=== PATIENT | female | born 1955 | race Caucasian/White ===

== ENCOUNTER 2016-10-16 13:12 | Outpatient (CLI) ==
[2016-07-22 15:46] VITALS: BMI 23.7
--- NOTE | 2016-10-16 16:01 | MRI ---
EXAM: MRI lumbar spine without IV contrast. DATE: 16 October 2016. HISTORY: Low back pain. Right lower extremity radiculopathy. TECHNIQUE: Sagittal and axial T1W and T2W sequences of the lumbar spine along with sagittal IR and coronal T2W sequences were obtained using 1.2 Valarie magnet. No IV contrast. COMPARISON: MRI lumbar spine 14 April 2014. FINDINGS: There are five classic [id number] lumbar vertebra. At the thoracolumbar junction, t here is a transitional vertebra with hypoplastic right rib and lumbar type left transverse sinus. I n keeping with previous nomenclature, this transitional vertebra is referred to as T12. A 14 degree leftward curvature of the lower thoracic and lumbar spine is again seen, with the apex o f curvature at L2-3. No acute lumbar fracture, subluxation, focal osseous malignancy, or pars inter articularis defect is identified. Tiny anterior osteophytes are demonstrated at several lumbar leve ls. Lumbar vertebra are normal in height. T2W/T1W bone marrow signal is more heterogeneous band in April 2014, likely due to fatty infiltration. Disc desiccation is observed throughout the lumbar s pine, except at L3-4. Mild disc space narrowing is detected at L4-5. No sacral fracture or stress reaction is apparent. There is no acute sacroiliitis. Conus medullaris terminates at T12-L1. Visi ble spinal cord is normal. No retroperitoneal lymphadenopathy, paraspinal mass, or aortic aneurysm is detected. Psoas muscles are symmetric bilaterally. There is mild left sacrospinalis muscle atrophy inferiorly. Visible por tions of the liver, spleen, gallbladder, pancreas, adrenal glands and kidneys reveal no definitive l esions / abnormality. Segmental analysis: T11-12: Normal. T12-L1: Normal. L1-2: Minimal posterior disc bulge does not cause central canal or foraminal stenosis. L2-3: Minimal concentric disc bulge causes minimal bilateral inferior foraminal encroachment. No ce ntral canal stenosis. L3-4: Small concentric disc bulge, mild facet arthropathy and slight ligamentum flavum hypertrophy cause mild central canal stenosis, moderate right foraminal stenosis, and minimal/mild left foramina l narrowing. Small right facet effusion is present. L4-5: Small concentric disc bulge, mild left facet arthropathy and mild ligamentum flavum hypertrop hy cause mild central canal stenosis, minor right foraminal narrowing and mild / moderate left manuel inal stenosis. L5-S1: Posterior midline disc protrusion (4.2 mm AP x 20 mm transverse) touches each S1 nerve root and causes mild central canal stenosis. Minor facet arthropathy and disc bulge extending into the l eft foramen cause minor left foraminal stenosis . IMPRESSIONS: 1. Thoracolumbar mild levoscoliosis, mild lumbar facet arthropathy and mild DDD - - similar to 2013. 2. Mild central canal stenoses at L3-4, L4-5, L5-S1. 3. Multilevel foraminal narrowing as described. 4. Marrow heterogeneity suggests fatty infiltration/ osteopenia.
== END 2016-10-16 13:13 | disposition home or self-care (01) ==
LOC: RAD 13:12
PROVIDERS: ATTEND Physician Assistant Medical
DX: M54.5 Low back pain (principal)

== ENCOUNTER → 2016-11-11 | Outpatient (RCR) ==
[2016-07-22 15:46] VITALS: BMI 23.7
--- NOTE | 2016-10-28 08:11 | RS.OPPTEV2 ---
Date of Note: 10/23/16 Visit #: 1 Date of Evaluation: 10/23/16 Payer Source: Medicaid Date of Onset/Injury/Change in Status: 08/14/16 Surgery Performed?: No Treatment Diagnosis: Lower back pain History of Condition/Mechanism of Injury:: Patient reports a history of back pain for years, but reports more recent onset of worsening symptoms and right buttock pain over the past 3 months. No particular incident exacerbated her condition. Mirta states she has been on [place] 10 mg and Xanax for many years and began to wean herself off of them and now she is completely off of these meds. Prior Level of Function.....Patient was independent with: ADL's, Self Care, Caregiving, Ambulation/Mobility, Community Integration/Access Functional Limitations: Sleep, ADL's, Reaching, Pushing, Pulling, Lifting, Carrying, Sitting, Standing, Bending, Squatting, Ambulation, Community Access/ Integration Current Subjective/complaints:: Patient states that her pain is so unrelenting that she is going to kill herself if she does not get help. She stated that she already had a plan in place. Treatment Side (optional): N/A Medical History Medical History: Arthritis (back and hands) Medical History Comments:: right fractured rib 6 years ago and levoscoliosis Surgical History: Tonsillectomy, Hysterectomy, Other Surgical History Comments:: carpal tunnel release of LUE, saliva gland removal on left (perotid gland), right wrist ORIF Smoking Status: Current every day smoker Hx Home Medications: Soma and Celexa, Effexor XR, & Gabapentin 300 mg bid & phenetermine Pain Assessment - Pain Description Pain Location: lower back and right buttock Current Pain Intensity: 8/10 Worst Pain Intensity: 10+/10 Functional Outcome Measure Oswestry LBP: 41 - G Codes & Severity Modifier G Codes & Modifier: NA Source of G Code score: NA General Range of Motion: BLEs are WNL Muscle Strength: BLEs WNLs - ROM Lumbar Flexion: Fingertips to floor Sidebending to Left: Reach to Lateral Joint Line Sidebending to Right: Reach to Lateral Joint Line Lumbar Spine ROM Limitations: Soft Tissue Tightness, Pain Comments: Full lumbar flexion with pt having significant pain coming up to neutral and she has to use her hands to walk her back up into extension. Palpation Palpation Findings: Tenderness (across the lumbar area and right buttock and sciatic notch area.) Sensation - Sensation Sensation Description: Within Normal Limits Interventions - Exercise/Activities/Manual Therapy Exercises/Activities: NA Manual Therapy: NA - Charges Total Direct Minutes: 45 Total Treatment Time: 45 Procedures billed for this date of service:: PT Eval Assessment Assessment: Patient has chronic but worsening LBP which she states is intolerable. It is limiting her daily activites. Patient Education: Education of diagnosis, Body/Joint mechanics, Activity Modification, Education of Plan of Care Rehab Potential: Good Short Term Goals Goal #1: Intermittent back pain Goal to be met by: 11/14/16 Goal #2: Average pain 5/10 Goal to be met by: 11/14/16 Goal #3: Independent in basic HEP Goal to be met by: 11/14/16 Goal #4: Patient reports 25% improvement in back pain. Goal to be met by: 11/14/16 Douper Goals Goal #1: Only occasional pain Goal to be met by: 12/05/16 Goal #2: Patient is independent with proper body mechanics Goal to be met by: 12/05/16 Goal #3: Patient is independent with HEP to maintain DC status. Goal to be met by: 12/05/16 Goal #4: Oswestry LBP score 30/50 Goal to be met by: 12/05/16 Plan - Treatment to be Provided Procedures: Therapeutic Exercises, Therapeutic Activity, Manual Therapy, Massage , Patient Education Modalities: Electrical Stimulation, Ultrasound/Phonophoresis, Class IV Laser, Cryotherapy, Hot Packs, Mechanical Traction - Treatment Plan Frequency: 2 X week Duration: 6 weeks ORDER # VISITS AND/OR THROUGH DATE: 12/05/2016 - Treatment Code (1) Low back pain Qualifiers: Chronicity: chronic Back pain laterality: right Sciatica presence: with sciatica Sciatica laterality: sciatica of right side Qualified Description: Chronic right-sided low back pain with right-sided sciatica Qualifier Code(s): (M54.41) Lumbago with sciatica, right side
--- NOTE | 2016-10-28 14:12 | RS.OPPTDN ---
Subjective Date of Note: 10/28/16 Visit #: 2 Date of Evaluation: 10/23/16 Payer Source: Medicaid Treatment Diagnosis: Lower back pain Current Subjective/complaints:: Patient states her back is bothering her severely. Says that she can't get into certain positions (but unable to say which position) because of pain. She also c/o severe neck pain in which she says it is "killing her." *Precautions: Stitches Pain Assessment - Pain Description Pain Location: lower back and right buttock, moving to the L side Pain Description: Radiating, Sharp, Throbbing Current Pain Intensity: "severe" - Treatment Modality: Ultrasound Parameters/Method Applied: continuous @ 1.5 w/cm2 x 12 mins R lumbar paraspinals and SI/and some into the L Patient Position: Left Sidelying - Heat/Cryotherapy Treatment: Hot Pack Interventions - Exercise/Activities/Manual Therapy Exercises/Activities: Passive hamstring and piriformis stretching, pillow squeezes and isometric hip abd Total minutes of Exercise: 15 Manual Therapy: NA HOME EXERCISE PROGRAM: HS stretch and Prayer stretch. Cat/camel stretches in quadraped. Isometric hip flexion. Red theraband for scapular retraction. - Charges Total Direct Minutes: 27 Total Treatment Time: 42 Procedures billed for this date of service:: hp, u/s, ex Assessment: Patient appeared to have improved presentation of pain today despite describing it as severe. She demo good flexibility with stretching today, but does show the need to continue with strengthening and trunk stability. Patient Education: Education of diagnosis, Body/Joint mechanics, Home Exercise Program, Home Safety, Activity Modification, Education of Plan of Care Patient demonstrates compliance with HEP?: Yes Short Term Goals Goal #1: Intermittent back pain Goal to be met by: 11/14/16 Goal #2: Average pain 5/10 Goal to be met by: 11/14/16 Goal #3: Independent in basic HEP Goal to be met by: 11/14/16 Goal #4: Patient reports 25% improvement in back pain. Goal to be met by: 11/14/16 Director [employer] Goals Goal #1: Only occasional pain Goal to be met by: 12/05/16 Goal #2: Patient is independent with proper body mechanics Goal to be met by: 12/05/16 Goal #3: Patient is independent with HEP to maintain DC status. Goal to be met by: 12/05/16 Goal #4: Oswestry LBP score 30/50 Goal to be met by: 12/05/16 Plan PLAN OF CARE EXPIRES ON:: 12/05/16 ORDER # VISITS AND/OR THROUGH DATE: 12/05/2016 PLAN: Continue Plan of Care
--- NOTE | 2016-10-30 16:39 | RS.OPPTDN ---
Subjective Date of Note: 10/30/16 Visit #: 3 Date of Evaluation: 10/23/16 Payer Source: Medicaid Treatment Diagnosis: Lower back pain Current Subjective/complaints:: Patient says her last treatment helped tremendously. She was very excited to have u/s again today. She says she was able to sleep better too. *Precautions: Stitches Pain Assessment - Pain Description Pain Location: lower back and right buttock, moving to the L side Pain Description: Radiating, Sharp, Throbbing Current Pain Intensity: "severe" - Treatment Modality: Ultrasound Parameters/Method Applied: continuous @ 1.5 w/cm2 x 12 mins to the R lumbar paraspinals and SI Patient Position: Left Sidelying - Heat/Cryotherapy Treatment: Hot Pack (over the R low back and R SI sidelying) Interventions - Exercise/Activities/Manual Therapy Exercises/Activities: Passive hamstring and piriformis stretching, pillow squeezes and isometric hip abd and flexion. Pelvic tilts all x 10. Total minutes of Exercise: 16 Manual Therapy: NA HOME EXERCISE PROGRAM: HS stretch and Prayer stretch. Cat/camel stretches in quadraped. Isometric hip flexion. Red theraband for scapular retraction. - Charges Total Direct Minutes: 28 Total Treatment Time: 43 Procedures billed for this date of service:: hp, u/s, ex Assessment: Patient experienced relief after her first session as well as today. She appears to david all trunk stability well. She has also seen improvement with sleep. Patient Education: Education of diagnosis, Body/Joint mechanics, Home Exercise Program, Home Safety ([place]), Activity Modification, Education of Plan of Care Short Term Goals Goal #1: Intermittent back pain Goal to be met by: 11/14/16 Goal #2: Average pain 5/10 Goal to be met by: 11/14/16 Goal #3: Independent in basic HEP Goal to be met by: 11/14/16 Goal #4: Patient reports 25% improvement in back pain. Goal to be met by: 11/14/16 Auto Driver Goals Goal #1: Only occasional pain Goal to be met by: 12/05/16 Goal #2: Patient is independent with proper body mechanics Goal to be met by: 12/05/16 Goal #3: Patient is independent with HEP to maintain DC status. Goal to be met by: 12/05/16 Goal #4: Oswestry LBP score 30/50 Goal to be met by: 12/05/16 Plan PLAN OF CARE EXPIRES ON:: 12/05/16 ORDER # VISITS AND/OR THROUGH DATE: 12/05/2016 PLAN: Progress Exercises
--- NOTE | 2016-11-04 15:35 | RS.OPPTDN ---
Subjective Date of Note: 11/04/16 Visit #: 4 Date of Evaluation: 10/23/16 Payer Source: Medicaid Treatment Diagnosis: Lower back pain Current Subjective/complaints:: Patient states u/s has helped back pain tremendously. She expresses being pleased how well is therapy. *Precautions: Stitches Pain Assessment - Pain Description Pain Location: lower back and right buttock, moving to the L side Pain Description: Radiating, Sharp, Throbbing Current Pain Intensity: "severe" - Treatment Modality: Ultrasound Parameters/Method Applied: continuous @ 1.5 w/cm2 x 12 mins R lumbar paraspinals and SI Patient Position: Left Sidelying - Heat/Cryotherapy Treatment: Hot Pack (LB and R SI in sidelying x 20 mins) Interventions - Exercise/Activities/Manual Therapy Exercises/Activities: Passive hamstring, lower trunk rotation and piriformis stretching, pillow squeezes and isometric hip abd and flexion. Pelvic tilts all 2 x 10. Total minutes of Exercise: 16 Manual Therapy: NA HOME EXERCISE PROGRAM: HS stretch and Prayer stretch. Cat/camel stretches in quadraped. Isometric hip flexion. Red theraband for scapular retraction. - Charges Total Direct Minutes: 28 Total Treatment Time: 48 Procedures billed for this date of service:: hp, u/s, ex Assessment: Patient progressing well with reduced back pain and improved david to progressing therex. She demonstrates flexibility WNL at this point, but still needs stability for trunk. Patient Education: Education of diagnosis, Body/Joint mechanics, Home Exercise Program, Home Safety, Activity Modification, Education of Plan of Care Patient demonstrates compliance with HEP?: Yes Short Term Goals Goal #1: Intermittent back pain Goal to be met by: 11/14/16 Progress towards Goal:: Progressing Goal #2: Average pain 5/10 Goal to be met by: 11/14/16 Progress towards Goal:: Progressing Goal #3: Independent in basic HEP Goal to be met by: 11/14/16 Progress towards Goal:: Progressing Goal #4: Patient reports 25% improvement in back pain. Goal to be met by: 11/14/16 Lieutenant [employer]istics Goals Goal #1: Only occasional pain Goal to be met by: 12/05/16 Goal #2: Patient is independent with proper body mechanics Goal to be met by: 12/05/16 Goal #3: Patient is independent with HEP to maintain DC status. Goal to be met by: 12/05/16 Goal #4: Oswestry LBP score 30/50 Goal to be met by: 12/05/16 Plan PLAN OF CARE EXPIRES ON:: 12/05/16 ORDER # VISITS AND/OR THROUGH DATE: 12/05/2016 PLAN: Progress Exercises
--- NOTE | 2016-11-06 15:21 | RS.OPPTDN ---
Subjective Date of Note: 11/06/16 Date of Evaluation: 10/23/16 Payer Source: Medicaid Treatment Diagnosis: Lower back pain Current Subjective/complaints:: I am feeling so much better and my new anti- depressants are kicking in and I feel they are really helping me too. *Precautions: Stitches Pain Assessment - Pain Description Pain Location: lower back and right buttock Pain Description: Radiating, Sharp, Throbbing Current Pain Intensity: 3/10 Interventions - Exercise/Activities/Manual Therapy Exercises/Activities: Alt KTC, lower trunk rotation and posterior pelvic tilt all 2 x 10. Min assist needed for techniqe and to prevent over stretching. Manual Therapy: Deep tissue massage and myofascial stretch and release to the lumbar paraspinals. HOME EXERCISE PROGRAM: HS stretch and Prayer stretch. Cat/camel stretches in quadraped. Isometric hip flexion. Red theraband for scapular retraction. - Charges Total Direct Minutes: 45 Total Treatment Time: 45 Procedures billed for this date of service:: Ther ex and MT Assessment: Pt tolerated treatment well and is gaining relief from PT intervention. Short Term Goals Goal #1: Intermittent back pain Goal to be met by: 11/14/16 Progress towards Goal:: Met Goal #2: Average pain 5/10 Goal to be met by: 11/14/16 Progress towards Goal:: Progressing Goal #3: Independent in basic HEP Goal to be met by: 11/14/16 Progress towards Goal:: Progressing Goal #4: Patient reports 25% improvement in back pain. Goal to be met by: 11/14/16 Progress towards Goal:: Met Claims Support Specialist Goals Goal #1: Only occasional pain Goal to be met by: 12/05/16 Goal #2: Patient is independent with proper body mechanics Goal to be met by: 12/05/16 Goal #3: Patient is independent with HEP to maintain DC status. Goal to be met by: 12/05/16 Goal #4: Oswestry LBP score 30/50 Goal to be met by: 12/05/16 Plan PLAN OF CARE EXPIRES ON:: 12/05/16 ORDER # VISITS AND/OR THROUGH DATE: 12/05/2016 PLAN: Continue Plan of Care
--- NOTE | 2016-11-11 16:59 | RS.OPPTDN ---
Subjective Date of Note: 11/11/16 Visit #: 7 Date of Evaluation: 10/23/16 Payer Source: Medicaid Treatment Diagnosis: Lower back pain Current Subjective/complaints:: Patient says she only hurts now if she gets in particular positions. Says she really does not have any pain right now. *Precautions: Stitches Pain Assessment - Pain Description Pain Location: lower back and right buttock Pain Description: Radiating, Sharp, Throbbing Current Pain Intensity: none, but changes with positions - Treatment Modality: Ultrasound Parameters/Method Applied: 1.5 w/cm2 x 10 mins to R SI Patient Position: Left Sidelying - Heat/Cryotherapy Treatment: Hot Pack (10 mins over the R SI in sidelying) Interventions - Exercise/Activities/Manual Therapy Exercises/Activities: Patient receives hams and piriformis stretching bilaterally x 3. Patient performs pillow squeezes, isometric hip flexion/abd, bridging, and SLR. Total minutes of Exercise: 22 Manual Therapy: na HOME EXERCISE PROGRAM: HS stretch and Prayer stretch. Cat/camel stretches in quadraped. Isometric hip flexion. Red theraband for scapular retraction. - Charges Total Direct Minutes: 34 Total Treatment Time: 59 Procedures billed for this date of service:: hp, u/s, ex Assessment: Patient presented prior to treatment with no pain, but has pain at the R SI with turning from sidelying to supine. None with bridging or other therex. Patient Education: Education of diagnosis, Body/Joint mechanics, Home Exercise Program, Home Safety, Activity Modification, Education of Plan of Care Patient demonstrates compliance with HEP?: Yes Short Term Goals Goal #1: Intermittent back pain Goal to be met by: 11/14/16 Progress towards Goal:: Met Goal #2: Average pain 5/10 Goal to be met by: 11/14/16 Progress towards Goal:: Progressing Goal #3: Independent in basic HEP Goal to be met by: 11/14/16 Progress towards Goal:: Progressing Goal #4: Patient reports 25% improvement in back pain. Goal to be met by: 11/14/16 Progress towards Goal:: Met Ug Designer Goals Goal #1: Only occasional pain Goal to be met by: 12/05/16 Goal #2: Patient is independent with proper body mechanics Goal to be met by: 12/05/16 Goal #3: Patient is independent with HEP to maintain DC status. Goal to be met by: 12/05/16 Goal #4: Oswestry LBP score 30/50 Goal to be met by: 12/05/16 Plan PLAN OF CARE EXPIRES ON:: 12/05/16 ORDER # VISITS AND/OR THROUGH DATE: 12/05/2016 PLAN: Progress Exercises
== END ==
PROVIDERS: ATTEND Physician Assistant Medical
DX: M54.5 Low back pain (principal)

== ENCOUNTER 2016-11-13 14:58 | Outpatient (RCR) ==
[2016-07-22 15:46] VITALS: BMI 23.7
--- NOTE | 2016-11-13 16:47 | RS.OPPTDN ---
Subjective Date of Note: 11/13/16 Visit #: 7 Date of Evaluation: 10/23/16 Payer Source: Medicaid Treatment Diagnosis: Lower back pain Current Subjective/complaints:: Patient c/o back tightness today. She says that treatment has helped her greatly. She says that she has ordered a therapy ball and is eager to use it. *Precautions: Stitches Pain Assessment - Pain Description Pain Location: lower back and right buttock Pain Description: Tightness Current Pain Intensity: tight and guarded - Treatment Modality: Ultrasound Parameters/Method Applied: continuous @ 1.5 w/cm2 x 12 mins to the R SI and low back Patient Position: Left Sidelying - Heat/Cryotherapy Treatment: Hot Pack (20 mins to the R LB and SI) Interventions - Exercise/Activities/Manual Therapy Exercises/Activities: Patient performs continued trunk stability. She performs pillow squeezes, isometric hip/abd, bridging, SLR, 2/10. Patient performs: Scap retraction, horizontal shoulder abd, 2# wand for bilateral shoulder flexion and Alternate LE lift with 1# wand on therapy ball x 10. Total minutes of Exercise: 22 Manual Therapy: na HOME EXERCISE PROGRAM: HS stretch and Prayer stretch. Cat/camel stretches in quadraped. Isometric hip flexion. Red theraband for scapular retraction. - Charges Total Direct Minutes: 34 Total Treatment Time: 54 Procedures billed for this date of service:: hp, u/s, ex Assessment: Patient david all new therex well maintaining bal on therapy ball. Patient's tightness had been relieved with treatment today. Patient Education: Education of diagnosis, Body/Joint mechanics, Home Exercise Program, Home Safety, Activity Modification, Education of Plan of Care Patient demonstrates compliance with HEP?: Yes Short Term Goals Goal #1: Intermittent back pain Goal to be met by: 11/14/16 Progress towards Goal:: Met Goal #2: Average pain 5/10 Goal to be met by: 11/14/16 Progress towards Goal:: Progressing Goal #3: Independent in basic HEP Goal to be met by: 11/14/16 Progress towards Goal:: Progressing Goal #4: Patient reports 25% improvement in back pain. Goal to be met by: 11/14/16 Progress towards Goal:: Met [facility] Goals Goal #1: Only occasional pain Goal to be met by: 12/05/16 Goal #2: Patient is independent with proper body mechanics Goal to be met by: 12/05/16 Goal #3: Patient is independent with HEP to maintain DC status. Goal to be met by: 12/05/16 Goal #4: Oswestry LBP score 30/50 Goal to be met by: 12/05/16 Plan PLAN OF CARE EXPIRES ON:: 12/05/16 ORDER # VISITS AND/OR THROUGH DATE: 12/05/2016 PLAN: Continue Plan of Care (x one more session per order)
--- NOTE | 2016-11-18 17:01 | RS.OPPTDN ---
Subjective Date of Note: 11/18/16 Visit #: 8 Date of Evaluation: 10/23/16 Payer Source: Medicaid Treatment Diagnosis: Lower back pain Current Subjective/complaints:: Patient says she has no pain right now. She says she only hurts with certain positions, like maneuvering in bed. *Precautions: Stitches Pain Assessment - Pain Description Pain Location: lower back and right buttock Current Pain Intensity: none currently - Treatment Modality: Ultrasound Parameters/Method Applied: continuous @ 1.5 w/cm2 x 10 mins to the R lumbar paraspinals and SI Patient Position: Left Sidelying - Heat/Cryotherapy Treatment: Hot Pack (15 mins to the R SI and low back in sidelying) Interventions - Exercise/Activities/Manual Therapy Exercises/Activities: Patient performs continued trunk stability. She performs pillow squeezes, isometric hip/abd, bridging, SLR, 2/10. Patient performs: Scap retraction, horizontal shoulder abd, 2# wand for bilateral shoulder flexion and Alternate LE lift with 1# wand on therapy ball x 10. Patient completes Oswestry Scale. Total minutes of Exercise: 22 Manual Therapy: na HOME EXERCISE PROGRAM: HS stretch and Prayer stretch. Cat/camel stretches in quadraped. Isometric hip flexion. Red theraband for scapular retraction. - Objective Findings Observations,measurements,etc.: 13 score or 26% on Oswestry - Charges Total Direct Minutes: 32 Total Treatment Time: 47 Procedures billed for this date of service:: hp, u/s, ex Assessment: Patient has progressed well with trunk strengthening and has been able to advance to exercises on therapy ball maintaining good bal. She has a physioball, weights, and tbands at home to assist her with further HEP. Discussed body mechanics and posture to help prevent further pain. Patient Education: Education of diagnosis, Body/Joint mechanics, Home Exercise Program, Home Safety, Activity Modification, Education of Plan of Care Patient demonstrates compliance with HEP?: Yes Short Term Goals Goal #1: Intermittent back pain Goal to be met by: 11/14/16 Progress towards Goal:: Met Goal #2: Average pain 5/10 Goal to be met by: 11/14/16 Progress towards Goal:: Met Goal #3: Independent in basic HEP Goal to be met by: 11/14/16 Progress towards Goal:: Met Goal #4: Patient reports 25% improvement in back pain. Goal to be met by: 11/14/16 Progress towards Goal:: Met [employer] 2[employer] Shift Goals Goal #1: Only occasional pain Goal to be met by: 12/05/16 Progress towards goal: Met Goal #2: Patient is independent with proper body mechanics Goal to be met by: 12/05/16 Progress towards goal: Met Goal #3: Patient is independent with HEP to maintain DC status. Goal to be met by: 12/05/16 Goal #4: Oswestry LBP score 30/50 Goal to be met by: 12/05/16 Progress towards goal: Met Plan PLAN OF CARE EXPIRES ON:: 12/05/16 ORDER # VISITS AND/OR THROUGH DATE: 12/05/2016 PLAN: Plan for Discharge
--- NOTE | 2016-12-19 10:50 | RS.QUICKDC ---
Discharge from PT Date of Discharge: 12/19/16 Number of Visits: 8 Reason for Discharge: Patient attended for treatment of moist heat, u/s, and therex including passive stretching and trunk stability (postural and LE strengthening). Patient had attended full order of 8 sessions with verbalized progress with reduced back pain to none at LDOS and is only present mildly with "certain" unnamed positions. She was given tbands to progress to on her own at home and education of proper body mechanics to prevent flare ups of chronic back pain. For specific treatment, see daily notes.
== END 2016-12-12 ==
PROVIDERS: ATTEND Physician Assistant Medical
DX: M54.5 Low back pain (principal)

== ENCOUNTER 2016-12-09 12:04 | Outpatient (CLI) ==
[2016-07-22 15:46] VITALS: BMI 23.7
--- NOTE | 2016-12-09 15:54 | MRI ---
EXAM: MRI right hip without contrast. HISTORY: Pain right hip. Low back pain. Right buttock and leg aches. No right hip surgery report ed.. TECHNIQUE: Using a body phased array coil on a high field strength magnet transaxial and coronal sh ort TR/TE non-fat suppressed, transaxial long TR/TE fat-suppressed and coronal STIR large field of v iew imaging obtained through level both hip joints. Additional sagittal long TR/TE non-fat suppress ed smaller field of view imaging obtained through the level of the right hip joint only. No intrave nous or intra-articular gadolinium contrast administered. FINDINGS: I do not have prior radiographs of the right hip available for comparison at the time of this dictation. Mild discogenic disease L4-L5. Facet arthropathy L4-L5 and L5-S1. Both sacroiliac joints intact wi thout diastases, subluxation or bone ankylosis. No joint effusions or definitive bone erosions. Ov erall bone marrow signal heterogeneity suggestive of intermixed red and yellow marrow. No acute fra cture, stress fracture or discrete lytic or blastic lesion. Mild osteoarthrosis pubic symphysis. Both femoral heads seated with normal lateral coverage and femoral heads sphericity. Mild bilateral hip osteoarthrosis. Physiologic amount of fluid both hip joints. Some early marginal osteophyte f ormation. Trace subchondral cyst formation over the superior right hip acetabulum. No greater troc hanteric or iliopsoas bursitis. Muscle bulk of the pelvis shows symmetric fatty infiltration withou t otherwise acute muscle strain. Both proximal hamstring origins intact. Both sciatic nerves normal in appearance along their course. No enlarged inguinal lymphadenopathy or bowel herniation. No enlarged pelvic sidewall lymphadenopat hy. No pelvic ascites. Prior hysterectomy. Bladder decompressed.. IMPRESSION: No acute fracture, stress fracture or avascular necrosis right hip. No hip effusions o r surrounding bursitis or acute muscle strain. Mild bilateral hip osteoarthrosis. Mild discogenic disease L4-L5. Facet arthropathy L4-S1. Mild osteoarthrosis pubic symphysis. Prior hysterectomy. Correlate clinically. No pelvic lymphadenopathy or ascites. Recommendation is obtainment and correlation with plain film radiographs of the right hip as none ar e available for comparison at the time of this dictation.
== END 2016-12-09 12:05 | disposition home or self-care (01) ==
LOC: RAD 12:04
PROVIDERS: ATTEND Physician Assistant Medical
DX: M25.551 Pain in right hip (principal)

== ENCOUNTER 2016-12-22 14:35 | Outpatient (CLI) ==
[2016-07-22 15:46] VITALS: BMI 23.7
--- NOTE | 2016-12-22 15:49 | US ---
EXAM: Bilateral carotid artery Doppler History: Dizziness. Technique: Multiple sonographic images through the bilateral internal carotid arteries were obtaine d. Color duplex Doppler was used to interrogate vascular flow. Findings: The right ICA peak systolic velocities within normal limits measuring 60 cm/sec. The right ICA/cca PSV ratio is normal at 0.8. The right vertebral artery is patent and demonstrates antegrade flow. Mohr scale images demonstrate no significant plaque buildup. The left ICA peak systolic velocity is within normal limits measuring 80 cm/sec. The left ICA/cca P SV ratio is normal at 1.2. The left vertebral artery is patent and demonstrates antegrade flow. Gr ay scale images demonstrate no significant plaque buildup. Impression: No significant hemodynamic stenosis of the bilateral internal carotid arteries.
== END 2016-12-22 14:36 | disposition home or self-care (01) ==
LOC: RAD 14:35
PROVIDERS: ATTEND Physician Assistant Medical
DX: R42 Dizziness and giddiness (principal)

== ENCOUNTER 2017-02-17 18:13 | Outpatient (CLI) ==
[2016-07-22 15:46] VITALS: BMI 23.7
== END 2017-02-17 18:30 ==
LOC: AMBL 18:13
PROVIDERS: ATTEND Internal Medicine
DX: R45.851 Suicidal ideations (principal)

== ENCOUNTER 2017-08-14 16:29 | Outpatient (CLI) ==
[2016-07-22 15:46] VITALS: BMI 23.7
--- NOTE | 2017-08-14 16:50 | DI ---
EXAM: Three views of the left hand HISTORY: Left hand pain with no injury. COMPARISON: Left wrist x-ray same day FINDINGS: Left hand demonstrates no cortical irregularity or displaced fracture. The joint spaces ap pear maintained. There is mild degenerative change of the first CMC joint. Carpal bones metacarpals are normal. The soft tissues are normal. IMPRESSION: 1. No acute abnormality or displaced fracture. 2. Mild degenerative change of the first CMC joint.
--- NOTE | 2017-08-14 16:52 | DI ---
EXAM: Three views of the left wrist HISTORY: Left wrist pain with no injury. COMPARISON: None FINDINGS: The radiocarpal joint is intact. Carpal bones are normal. There is degenerative change of the first CMC joint. There is no lytic or blastic lesion. There is no displaced fracture or disloc ation. The soft tissues are unremarkable. IMPRESSION: No acute abnormality or displaced fracture of the left wrist with mild degenerative change of the fir st CMC joint.
== END 2017-08-14 16:30 | disposition home or self-care (01) ==
LOC: RAD 16:29
PROVIDERS: ATTEND Physician Assistant
DX: M79.642 Pain in left hand (principal)

== ENCOUNTER 2017-10-04 14:31 | Emergency (ER) ==
[2017-10-04 14:37] VITALS: TEMP 98.8; BMI 30.8
[2017-10-04] MEDS ORDERED: NORCO 7.5-325 PO STA (14:43)
--- NOTE | 2017-10-04 15:08 | CT ---
EXAM: CT scan thorax without contrast HISTORY: Cough COMPARISON: None. FINDINGS: Contiguous axial images obtained through the thorax without contrast utilizing 5-mm collim ation. Sagittal and coronal reconstructions were imaged and reviewed.. The thoracic inlet is unrema rkable. There are subcentimeter prevascular and pretracheal lymph nodes. The heart is normal in siz e with coronary artery calcification without pericardial effusion.. There is no evidence of infiltra te or effusion. There is 1.4 x 0.6 nodule in the right perihilar region which merits follow-up.. Ad renal glands are normal.. Moderate osteopenia is noted throughout the thoracic spine. IMPRESSION: Normal-sized cardiac silhouette with coronary artery calcification. Right perihilar nodular opacity which merits follow-up comparative examination. No evidence of infilt rate or effusion.
--- NOTE | 2017-10-04 16:48 | ED.PDOC ---
General ED Provider: Dr. JOYCE STARK-ER Chief Complaint: Respiratory Complaint Stated Complaint: aicha been coughing Time Seen by Physician: 14:35 Mode of Arrival: Walk-In Information Source: Patient Exam Limitations: No limitations Primary Care Provider: JANAE STRAUSS Nursing and Triage Documentation Reviewed and Agree: Yes Reviewed sepsis parameters & appropriate labs ordered?: Yes System Inflammatory Response Syndrome: Not Applicable Sepsis Protocol: For patient's 13 years and over: Temp is 96.8 and below OR 101 and greater Pulse >90 BPM Resp >20/minute Acutely Altered Mental Status Are patient's symptoms suggestive of a new infection, such as: -Pneumonia -Skin, Soft Tissue -Endocarditis -UTI -Bone, Joint Infection -Implantable Device -Acute Abdominal Infection -Wound Infection -Meningitis -Blood Stream Catheter Infection -Unknown Respiratory Complaint Exam - Respiratory Complaint/Exam Onset/Duration: 3 days Symptoms Are: Still present Timing: Constant Initial Severity: Mild Current Severity: Mild Location: Chest Character: Reports: Productive cough Aggravating: Reports: URI Alleviating: Reports: None Associated Signs and Symptoms: Reports: Fever, URI, Nasal congestion. Denies: Rapid breathing, Dyspnea, Chills, Chest pain, Pleuritic chest pain, Wheezing, Hemoptysis, Dizziness, Calf pain, Calf swelling, Edema, Hoarseness, Sinus discomfort, Vomiting, Sore throat, Weight loss, Decreased oral intake, Increased thirst, Increased appetite, Increased urination History of Healthcare-Acquired Pneumonia: No Home Oxygen Use: No Recent Stress Test: No Recent Echo/LV Function: No Current Antibiotic Use: No Current Asthma Medication Use: No Respiratory Distress: None Inadequate Respiratory Effort: No Dysphagia Present: No Stridor Present: No JVD Present: No Accessory Muscle Use: No Retractions: Not Present Diminished Breath Sounds: No Differential Diagnoses: Pneumonia, Bronchitis, URI Review of Systems - Review Of Systems Constitutional: Reports: Fever Eyes: Reports: No symptoms Ears, Nose, Mouth, Throat: Reports: Nose discharge Respiratory: Reports: Cough Cardiac: Reports: No symptoms GI: Reports: No symptoms : Reports: No symptoms Musculoskeletal: Reports: No symptoms Skin: Reports: No symptoms Neurological: Reports: No symptoms Endocrine: Reports: No symptoms Hematologic/Lymphatic: Reports: No symptoms All Other Systems: Reviewed and Negative Past Medical History - Past Medical History Previously Healthy: No Endocrine: Reports: Unknown Cardiovascular: Reports: Unknown Respiratory: Reports: Unknown Hematological: Reports: Unknown Gastrointestinal: Reports: Unknown Genitourinary: Reports: Unknown Neuro/Psych: Reports: Unknown Musculoskeletal: Reports: Unknown Cancer: Reports: Unknown Last Menstrual Period: hysterectomy - Surgical History General Surgical History: Reports: Unknown - Family History Family History: Reports: Unknown - Social History Smoking Status: Current every day smoker, Heavy tobacco smoker Hx Substance Use: No Alcohol Screening: Occasionally Physical Exam - Physical Exam Appearance: Well-appearing Eyes: ARNULFO ENT: Ears normal, Nose normal, Oropharynx normal Neck: Supple Respiratory: Rhonchi, Wheezes Cardiovascular: RRR GI/: Soft, Nontender, No masses, Bowel sounds normal, No Organomegaly Musculoskeletal: Normal strength, ROM intact, No edema, No calf tenderness Skin: Warm, Dry, Normal color Neurological: Sensation intact, Motor intact, Reflexes intact, Cranial nerves intact, Alert, Oriented Psychiatric: Affect appropriate, Mood appropriate Interpretation - Radiology Interpretation Radiology Interpretation By: Radiologist Radiology Results: Positive Exam Interpreted: CT Scan ("perihilar nodular opacity") Critical Care Note - Critical Care Note Total Time (mins): 0 Course - Course Hematology/Chemistry: 10/04/17 14:55 10/04/17 14:55 Orders, Labs, Meds: Lab Review 10/04/17 10/04/17 10/04/17 14:55 14:55 16:38 WBC 2.99 L RBC 3.95 L Hgb 13.0 Hct 37.2 MCV 94.2 MCH 32.9 H MCHC 34.9 RDW Coeff of Angelo 13.2 Plt Count 125 L Immature Gran % (Auto) 0.3 Neut % (Auto) 50.2 Lymph % (Auto) 28.1 [place] % (Auto) 19.4 H Eos % (Auto) 1.3 Baso % (Auto) 0.7 Immature Gran # (Auto) 0.0 Neut # 1.5 L Lymph # 0.8 [place] # 0.6 Eos # 0.0 Baso # 0.0 Sodium 141 Potassium 3.9 Chloride 113 H Carbon Dioxide 22 L Anion Gap 9.9 BUN 11 Creatinine 1.08 Estimated GFR (MDRD) 51.00 BUN/Creatinine Ratio 10.18 Glucose 90 Calcium 9.0 Total Bilirubin < 0.3 AST 53 H ALT 37 Alkaline Phosphatase 101 Total Protein 7.0 Albumin 3.2 L Globulin 3.8 Albumin/Globulin Ratio 0.84 Influenza A (Rapid) Negative by naat Influenza B (Rapid) Negative by naat Orders Category Date Time Status BLOOD CULTURE (ED ONLY) Stat LAB 10/04/17 14:55 Received CBC W/ AUTO DIFF Stat LAB 10/04/17 14:55 Completed COMPREHENSIVE METABOLIC PANEL Stat LAB 10/04/17 14:55 Completed FLU A & B MOLECULAR [FLU A/B MOLECULAR] Stat LAB 10/04/17 16:38 Completed FLU A/B MOLECULAR Stat LAB 10/04/17 14:45 Ordered MOLECULAR GROUP A STREP Stat LAB 10/04/17 14:45 Ordered MOLECULAR GROUP A STREP Stat LAB 10/04/17 16:38 Completed Hydrocodone Bit/Acetaminophen [[place] 7.5-325] MEDS 10/04/17 14:43 Discontinued 1 tab PO ONCE STA CT CHEST W/O CONTRAST Stat RADS 10/04/17 14:43 Completed Medications Discontinued Medications Generic Name Dose Route Start Last Admin Trade Name Freq PRN Reason Stop Dose Admin Acetaminophen/Hydrocodone Bitart 1 tab 10/04/17 14:43 10/04/17 14:55 [place] 7.5-325 PO 10/04/17 14:44 1 tab ONCE STA Administration she says she has high blood pressure but doesnt take any meds for it--she denies any symptoms such has headache or chest pain) Vital Signs: Temp Pulse Resp BP Pulse Ox 10/04/17 14:31 98.8 F 73 20 174/97 H 96 Departure - Departure Time of Disposition: 16:50 Disposition: HOME SELF-CARE Discharge Problem: Bronchitis, Lung nodule, Thrombocytopenia, Elevated blood pressure reading Leukopenia Qualifiers: Leukopenia type: unspecified Qualified Code(s): D72.819 - Decreased white blood cell count, unspecified Instructions: Acute Bronchitis (ED) Condition: Good Pt referred to PMD for follow-up: Yes IPMP verified?: No Additional Instructions: zpack--medrol dose pack==robitussin ac 2 tsps q 6hrs prn cough 150cc nr--fluids- -see clinic this week to have cbc repeated and to follow up on perihilar lung nodule--be sure and get bp checked this week Allergies/Adverse Reactions: Allergies meperidine HCl [From Demerol] Allergy (Mild, Verified 10/04/17 14:39) Anaphylaxis butorphanol tartrate [From Stadol] Adverse Reaction (Verified 10/04/17 14:39) erythromycin base [From E-Mycin] Adverse Reaction (Verified 10/04/17 14:39) Home Medications: Ambulatory Orders Duloxetine HCl [Cymbalta] 20 mg PO DAILY 10/04/17 Disposition Discussed With: Patient
[2017-10-04 17:09] VITALS: BP 171/69
== END 2017-10-04 17:09 | disposition home or self-care (01) ==
LOC: ED 14:31
DX: J40 Bronchitis, not specified as acute or chronic (principal); D72.819 Decreased white blood cell count, unspecified; R91.1 Solitary pulmonary nodule; R03.0 Elevated blood-pressure reading, without diagnosis of hypertension; D69.6 Thrombocytopenia, unspecified; F17.210 Nicotine dependence, cigarettes, uncomplicated
CPT/HCPCS: 36415; 80053; 85025; 87040; 87502; 87651; 99283

== ENCOUNTER 2017-10-09 12:55 | Outpatient (CLI) | END 2017-10-09 12:56 | disposition home or self-care (01) | LOC: LAB 12:55 | PROVIDERS: ATTEND Family Medicine | DX: J44.9 Chronic obstructive pulmonary disease, unspecified (principal) | CPT/HCPCS: 36415; 82306; 85007; 85027 ==

== ENCOUNTER 2017-10-13 17:20 | Outpatient (CLI) ==
--- NOTE | 2017-10-13 17:52 | DI ---
Exam: Left ribs History: Pleuritic chest pain Findings / impression: No rib fracture or other significant bony abnormality of the left ribs. No p neumothorax is seen. Scarring in the left lung.
== END 2017-10-13 17:21 | disposition home or self-care (01) ==
LOC: RAD 17:20
PROVIDERS: ATTEND Family Medicine
DX: R07.81 Pleurodynia (principal)

== ENCOUNTER 2017-11-10 15:57 | Outpatient (CLI) | END 2017-11-10 15:58 | disposition home or self-care (01) | LOC: FCC-LAB 15:57 | PROVIDERS: ATTEND Family Medicine | DX: R19.5 Other fecal abnormalities (principal); R11.0 Nausea; D70.8 Other neutropenia; R03.0 Elevated blood-pressure reading, without diagnosis of hypertension | CPT/HCPCS: 36415; 80053; 82272; 85025 ==

== ENCOUNTER 2017-11-21 11:21 | Outpatient (CLI) | END 2017-11-21 11:22 | disposition home or self-care (01) | LOC: FCC-LAB 11:21 | PROVIDERS: ATTEND Family Medicine | DX: R19.5 Other fecal abnormalities (principal) | CPT/HCPCS: 82272 ==

== ENCOUNTER 2017-11-25 12:18 | Outpatient (CLI) | END 2017-11-25 12:19 | disposition home or self-care (01) | LOC: LAB 12:18 | PROVIDERS: ATTEND Family Medicine | DX: R19.5 Other fecal abnormalities (principal); R11.0 Nausea | CPT/HCPCS: 82272; 87338 ==

== ENCOUNTER 2017-12-24 21:58 | Outpatient (CLI) | END 2017-12-24 21:59 | disposition home or self-care (01) | LOC: NONPT 21:58 | PROVIDERS: ATTEND Family Medicine | DX: T14.8XXA Other injury of unspecified body region, initial encounter (principal); E55.9 Vitamin D deficiency, unspecified; F33.1 Major depressive disorder, recurrent, moderate; R03.0 Elevated blood-pressure reading, without diagnosis of hypertension; R19.5 Other fecal abnormalities | CPT/HCPCS: 80053; 82306; 85025 ==

== ENCOUNTER 2018-01-06 14:46 | Outpatient (CLI) ==
--- NOTE | 2018-01-06 16:46 | CT ---
EXAM: CT of the chest without contrast History: Follow-up right lung nodule. Comparison: Chest CT 10/04/2017 Technique: Multiplanar CT images through the chest were obtained without the administration of IV co ntrast Findings: Heart size is within normal limits. No pericardial effusion. Coronary calcifications. A nnular calcifications of the aortic valve. No pathologically enlarged thoracic lymph nodes. Lobulat ed nodule within the right perihilar region has increased in size compared to the prior study now fifi suring 1.8 cm x 0.9 cm. It previously measured 1.4 cm x 0.6 cm. No developing lung nodules. No cons olidation. No pleural fluid and no pneumothorax. Within the visualized upper abdomen, no acute findings. No acute osseous abnormalities. Impression: 1. Increasing size of a lobulated right perihilar nodule could be malignant. Biopsy is recommended. 2. Coronary artery disease
== END 2018-01-06 14:47 | disposition home or self-care (01) ==
LOC: RAD 14:46
PROVIDERS: ATTEND Internal Medicine Pulmonary Disease
DX: R91.8 Other nonspecific abnormal finding of lung field (principal)

== ENCOUNTER 2018-01-28 13:45 | Outpatient (CLI) | END 2018-01-28 13:46 | disposition home or self-care (01) | LOC: CAR 13:45 | PROVIDERS: ATTEND Family Medicine | DX: Z01.810 Encounter for preprocedural cardiovascular examination (principal) | CPT/HCPCS: 93005; 93010 ==

== ENCOUNTER 2018-02-03 11:41 | Emergency (ER) ==
[2018-02-03 11:49] VITALS: BP 165/91; TEMP 97.7; BMI 30.6
--- NOTE | 2018-02-03 14:15 | CT ---
EXAM: CT of the abdomen pelvis without contrast History: Abdominal pain and diarrhea. Technique: Multiplanar CT images through the abdomen pelvis were obtained without the administration of IV contrast. Enteric contrast was administered. Findings: Lung bases are clear. No acute osseous abnormalities. Possible gallbladder sludge. Atherosclerotic vascular calcifications. Adrenal glands are unremarkable . No renal stones and no hydronephrosis. The appendix is not seen. There are no secondary signs of appendicitis. No peripancreatic inflammation. No focal liver or splenic lesions. No bowel obstruc tion. No free air and no ascites. No bladder wall thickening. Uterus is not seen. No perirectal i nflammation. No inflammatory stranding. Impression: 1. No acute intra-abdominal or pelvic process. 2. Possible gallbladder sludge.
--- NOTE | 2018-02-03 14:47 | ED.PDOC ---
General ED Provider: Dr. ROC VARNER Chief Complaint: Diarrhea Stated Complaint: diarrhea Time Seen by Physician: 11:50 (no bloody stools) Mode of Arrival: Walk-In Information Source: Patient Exam Limitations: No limitations Primary Care Provider: TANJA GREENFIELD Referred to ED by: Other (no dark stools) Nursing and Triage Documentation Reviewed and Agree: Yes Reviewed sepsis parameters & appropriate labs ordered?: Yes System Inflammatory Response Syndrome: Not Applicable Sepsis Protocol: For patient's 13 years and over: Temp is 96.8 and below OR 101 and greater Pulse >90 BPM Resp >20/minute Acutely Altered Mental Status Are patient's symptoms suggestive of a new infection, such as: -Pneumonia -Skin, Soft Tissue -Endocarditis -UTI -Bone, Joint Infection -Implantable Device -Acute Abdominal Infection -Wound Infection -Meningitis -Blood Stream Catheter Infection -Unknown System Inflammatory Response Syndrome: Not Applicable GI Complaint Exam - Vomiting/Diarrhea Complaint/Exam Onset/Duration: 1 day Symptoms Are: Resolved Episodes of Vomiting over last 24 Hours: 0 Episodes of Diarrhea Over Last 24 Hours: 8 Initial Severity: Moderate Current Severity: None Character of Vomiting: Reports: Non-bilious Aggravating: Reports: None Alleviating: Reports: None Associated Signs and Symptoms: Reports: Abdominal pain. Denies: Dizziness, Light-headedness, Melena, Hematemesis, Fever, Cramping Abdominal Findings: Present: None Differential Diagnoses: Other (c diff) Review of Systems - Review Of Systems Constitutional: Reports: No symptoms Eyes: Reports: No symptoms Ears, Nose, Mouth, Throat: Reports: No symptoms Respiratory: Reports: No symptoms Cardiac: Reports: No symptoms GI: Reports: Abdominal pain, Diarrhea : Reports: No symptoms Musculoskeletal: Reports: No symptoms Skin: Reports: No symptoms Neurological: Reports: No symptoms Endocrine: Reports: No symptoms Hematologic/Lymphatic: Reports: No symptoms All Other Systems: Reviewed and Negative Past Medical History - Past Medical History Previously Healthy: No Endocrine: Reports: Unknown Cardiovascular: Reports: Unknown Respiratory: Reports: Unknown Hematological: Reports: Unknown Gastrointestinal: Reports: Unknown Genitourinary: Reports: Unknown Neuro/Psych: Reports: Unknown Musculoskeletal: Reports: Unknown Cancer: Reports: Unknown Last Menstrual Period: none - Surgical History General Surgical History: Reports: Unknown - Family History Family History: Reports: Unknown - Social History Smoking Status: Current every day smoker, Heavy tobacco smoker Hx Substance Use: No Alcohol Screening: Occasionally Physical Exam - Physical Exam Appearance: Well-appearing, No pain distress, Well-nourished Eyes: ARNULFO, EOMI, Conjunctiva clear ENT: Ears normal, Nose normal, Oropharynx normal Respiratory: Airway patent, Breath sounds clear, Breath sounds equal, Respirations nonlabored Cardiovascular: RRR, Pulses normal, No rub, No murmur GI/: Soft, Nontender, No masses, Bowel sounds normal, No Organomegaly Musculoskeletal: Normal strength, ROM intact, No edema, No calf tenderness Skin: Warm, Dry, Normal color Neurological: Sensation intact, Motor intact, Reflexes intact, Cranial nerves intact, Alert, Oriented Psychiatric: Affect appropriate, Mood appropriate Interpretation - Radiology Interpretation Radiology Interpretation By: Radiologist Radiology Results: No acute changes Critical Care Note - Critical Care Note Total Time (mins): 0 Course - Course Hematology/Chemistry: 02/03/18 14:00 02/03/18 14:00 Orders, Labs, Meds: Lab Review 02/03/18 02/03/18 14:00 14:00 WBC 5.80 RBC 3.85 L Hgb 12.6 Hct 36.7 L MCV 95.3 MCH 32.7 H MCHC 34.3 RDW Coeff of Angelo 12.8 Plt Count 167 Immature Gran % (Auto) 0.2 Neut % (Auto) 65.9 Lymph % (Auto) 21.4 [place] % (Auto) 10.2 H Eos % (Auto) 1.6 Baso % (Auto) 0.7 Immature Gran # (Auto) 0.0 Neut # (Auto) 3.8 Lymph # (Auto) 1.2 [place] # (Auto) 0.6 Eos # (Auto) 0.1 Baso # (Auto) 0.0 Sodium 141 Potassium 3.9 Chloride 109 H Carbon Dioxide 23 Anion Gap 12.9 BUN 7 Creatinine 0.91 Estimated GFR (MDRD) 63.00 BUN/Creatinine Ratio 7.69 Glucose 89 Calcium 9.9 Total Bilirubin 0.4 AST 22 ALT 16 Alkaline Phosphatase 81 Total Protein 7.4 Albumin 3.7 Globulin 3.7 Albumin/Globulin Ratio 1.00 Orders Category Date Time Status C-DIFF MONITORING (NURSING) BID CARE 02/03/18 13:26 Active CBC W/ AUTO DIFF Stat LAB 02/03/18 14:00 Completed COMPREHENSIVE METABOLIC PANEL Stat LAB 02/03/18 14:00 Completed c-diff [C. DIFFICILE] Routine LAB 02/03/18 13:[address] ABDOMEN/PELVIS WO CONTRAST Stat RADS 02/03/18 13:25 Completed Vital Signs: Temp Pulse Resp BP Pulse Ox 02/03/18 11:43 97.7 F 87 18 165/91 H 94 L Departure - Departure Time of Disposition: 14:47 Disposition: HOME SELF-CARE Discharge Problem: Diarrhea Abdominal pain Qualifiers: Abdominal location: generalized Qualified Code(s): R10.84 - Generalized abdominal pain Diarrhea Qualifiers: Diarrhea type: unspecified type Qualified Code(s): R19.7 - Diarrhea, unspecified Instructions: Gastroenteritis (ED), Acute Diarrhea (ED), Dehydration (ED) Condition: Good Pt referred to PMD for follow-up: Yes IPMP verified?: No Additional Instructions: Please call your Family Physician as soon as possible to schedule a follow-up appointment. Prescriptions: Diphenoxylate HCl/Atropine [Lomotil 2.5-0.025 mg Tablet] 1 each PO 2-4XD 2 Days tablet Allergies/Adverse Reactions: Allergies meperidine HCl [From Demerol] Allergy (Mild, Verified 02/03/18 11:50) Anaphylaxis butorphanol tartrate [From Stadol] Adverse Reaction (Verified 02/03/18 11:50) erythromycin base [From E-Mycin] Adverse Reaction (Verified 02/03/18 11:50) Home Medications: Ambulatory Orders Albuterol Sulfate [Proair Hfa] 8.5 gm IH PRN 12/24/17 Cholecalciferol (Vitamin D3) [Vitamin D3] 1,000 unit PO DAILY 12/24/17 Lisinopril 20 mg PO DAILY 12/24/17 Diphenoxylate HCl/Atropine [Lomotil 2.5-0.025 mg Tablet] 1 each PO 2-4XD 2 Days tablet 02/03/18
== END 2018-02-03 15:11 | disposition home or self-care (01) ==
LOC: ED 11:41
DX: R10.84 Generalized abdominal pain (principal); R19.7 Diarrhea, unspecified; F17.210 Nicotine dependence, cigarettes, uncomplicated
CPT/HCPCS: 36415; 80053; 85025; 87493; 99283

== ENCOUNTER 2018-04-23 08:55 | Outpatient (CLI) ==
[2018-04-23] MEDS ORDERED: ALBUTEROL 0.083% NEB NEB STA (09:47)
== END 2018-04-23 08:56 | disposition home or self-care (01) ==
LOC: CAR 08:55
PROVIDERS: ATTEND Physician Assistant
DX: C34.91 Malignant neoplasm of unspecified part of right bronchus or lung (principal); C77.9 Secondary and unspecified malignant neoplasm of lymph node, unspecified; F17.200 Nicotine dependence, unspecified, uncomplicated; J44.9 Chronic obstructive pulmonary disease, unspecified

== ENCOUNTER 2018-04-26 14:16 | Outpatient (CLI) | END 2018-04-26 14:17 | disposition home or self-care (01) | LOC: LAB 14:16 | PROVIDERS: ATTEND Internal Medicine Medical Oncology | DX: C34.90 Malignant neoplasm of unspecified part of unspecified bronchus or lung (principal) | CPT/HCPCS: 36415; 80053; 85025 ==

== ENCOUNTER 2018-05-03 13:21 | Outpatient (CLI) | END 2018-05-03 13:22 | disposition home or self-care (01) | LOC: LAB 13:21 | PROVIDERS: ATTEND Internal Medicine Medical Oncology | DX: C34.90 Malignant neoplasm of unspecified part of unspecified bronchus or lung (principal) | CPT/HCPCS: 36415; 80053; 85007; 85025 ==

== ENCOUNTER 2018-05-18 10:42 | Outpatient (CLI) | END 2018-05-18 10:43 | disposition home or self-care (01) | LOC: LAB 10:42 | PROVIDERS: ATTEND Internal Medicine Medical Oncology | DX: C34.90 Malignant neoplasm of unspecified part of unspecified bronchus or lung (principal) | CPT/HCPCS: 36415; 80053; 84550; 85025 ==

== ENCOUNTER 2018-05-26 14:29 | Outpatient (CLI) | END 2018-05-26 14:30 | disposition home or self-care (01) | LOC: LAB 14:29 | PROVIDERS: ATTEND Internal Medicine Medical Oncology | DX: C34.90 Malignant neoplasm of unspecified part of unspecified bronchus or lung (principal); D70.1 Agranulocytosis secondary to cancer chemotherapy; T45.1X5A Adverse effect of antineoplastic and immunosuppressive drugs, initial encounter | CPT/HCPCS: 36415; 80053; 84550; 85007; 85025 ==

== ENCOUNTER 2018-05-30 14:46 | Outpatient (CLI) | END 2018-05-30 14:47 | disposition home or self-care (01) | LOC: LAB 14:46 | PROVIDERS: ATTEND Internal Medicine Medical Oncology | DX: C34.90 Malignant neoplasm of unspecified part of unspecified bronchus or lung (principal) | CPT/HCPCS: 36415; 80053; 85025 ==

== ENCOUNTER 2018-06-14 17:27 | Outpatient (CLI) | END 2018-06-14 17:28 | disposition home or self-care (01) | LOC: LAB 17:27 | PROVIDERS: ATTEND Internal Medicine Medical Oncology | DX: C34.90 Malignant neoplasm of unspecified part of unspecified bronchus or lung (principal) | CPT/HCPCS: 36415; 85025 ==

== ENCOUNTER 2018-06-21 17:15 | Outpatient (CLI) | END 2018-06-21 17:16 | disposition home or self-care (01) | LOC: LAB 17:15 | PROVIDERS: ATTEND Internal Medicine Medical Oncology | DX: C34.90 Malignant neoplasm of unspecified part of unspecified bronchus or lung (principal); D70.1 Agranulocytosis secondary to cancer chemotherapy; T45.1X5A Adverse effect of antineoplastic and immunosuppressive drugs, initial encounter | CPT/HCPCS: 36415; 80053; 84550; 85007; 85025 ==

== ENCOUNTER 2018-06-23 10:47 | Outpatient (CLI) | END 2018-06-23 10:48 | disposition home or self-care (01) | LOC: LAB 10:47 | PROVIDERS: ATTEND Internal Medicine Medical Oncology | DX: C34.90 Malignant neoplasm of unspecified part of unspecified bronchus or lung (principal) | CPT/HCPCS: 36415; 85007; 85025 ==

== ENCOUNTER 2018-06-28 13:14 | Outpatient (CLI) | END 2018-06-28 13:15 | disposition home or self-care (01) | LOC: LAB 13:14 | PROVIDERS: ATTEND Internal Medicine Medical Oncology | DX: C34.90 Malignant neoplasm of unspecified part of unspecified bronchus or lung (principal) | CPT/HCPCS: 36415; 80053; 85025 ==

== ENCOUNTER 2018-07-05 11:24 | Outpatient (CLI) | END 2018-07-05 11:25 | disposition home or self-care (01) | LOC: LAB 11:24 | PROVIDERS: ATTEND Internal Medicine Medical Oncology | DX: C34.90 Malignant neoplasm of unspecified part of unspecified bronchus or lung (principal) | CPT/HCPCS: 36415; 80053; 85025 ==

== ENCOUNTER 2018-07-20 12:24 | Outpatient (CLI) | END 2018-07-20 12:25 | disposition home or self-care (01) | LOC: LAB 12:24 | PROVIDERS: ATTEND Internal Medicine Medical Oncology | DX: C34.90 Malignant neoplasm of unspecified part of unspecified bronchus or lung (principal) | CPT/HCPCS: 36415; 80053; 85025 ==

== ENCOUNTER 2018-07-26 13:23 | Outpatient (CLI) | END 2018-07-26 13:24 | disposition home or self-care (01) | LOC: LAB 13:23 | PROVIDERS: ATTEND Internal Medicine Medical Oncology | DX: C34.90 Malignant neoplasm of unspecified part of unspecified bronchus or lung (principal) | CPT/HCPCS: 36415; 80053; 85007; 85025 ==

== ENCOUNTER 2018-08-02 11:27 | Outpatient (CLI) | END 2018-08-02 11:28 | disposition home or self-care (01) | LOC: LAB 11:27 | PROVIDERS: ATTEND Internal Medicine Medical Oncology | DX: C34.90 Malignant neoplasm of unspecified part of unspecified bronchus or lung (principal) | CPT/HCPCS: 36415; 80053; 85025 ==

== ENCOUNTER 2018-10-14 16:31 | Outpatient (CLI) | END 2018-10-14 16:32 | disposition home or self-care (01) | LOC: RHC-LAB 16:31 → FCC-LAB 16:32 | PROVIDERS: ATTEND Family Medicine | DX: C34.90 Malignant neoplasm of unspecified part of unspecified bronchus or lung (principal); R53.81 Other malaise | CPT/HCPCS: 36415; 80053; 84443; 85025 ==

== ENCOUNTER 2018-10-28 12:37 | Outpatient (CLI) | END 2018-10-28 12:38 | disposition home or self-care (01) | LOC: LAB 12:37 | PROVIDERS: ATTEND Internal Medicine Medical Oncology | DX: C34.90 Malignant neoplasm of unspecified part of unspecified bronchus or lung (principal); R59.0 Localized enlarged lymph nodes; D53.9 Nutritional anemia, unspecified; E87.5 Hyperkalemia; E83.52 Hypercalcemia; N17.9 Acute kidney failure, unspecified | CPT/HCPCS: 36415; 80053; 82607; 82728; 82746; 83540; 83550; 84443; 85025; 85651; 86038; 86430 ==

== ENCOUNTER 2018-11-26 12:16 | Outpatient (CLI) | END 2018-11-26 12:17 | disposition home or self-care (01) | LOC: LAB 12:16 | PROVIDERS: ATTEND Internal Medicine Medical Oncology | DX: C34.90 Malignant neoplasm of unspecified part of unspecified bronchus or lung (principal) | CPT/HCPCS: 36415; 80053; 85025 ==

== ENCOUNTER 2019-01-05 14:09 | Outpatient (CLI) | END 2019-01-05 14:10 | disposition home or self-care (01) | LOC: LAB 14:09 | PROVIDERS: ATTEND Internal Medicine Medical Oncology | DX: C34.90 Malignant neoplasm of unspecified part of unspecified bronchus or lung (principal) | CPT/HCPCS: 36415; 80053; 85027 ==

== ENCOUNTER 2019-01-11 14:45 | Outpatient (CLI) | END 2019-01-11 14:46 | disposition home or self-care (01) | LOC: LAB 14:45 | PROVIDERS: ATTEND Internal Medicine Medical Oncology | DX: C34.90 Malignant neoplasm of unspecified part of unspecified bronchus or lung (principal) | CPT/HCPCS: 36415; 80053; 85025 ==

== ENCOUNTER 2019-04-29 12:46 | Outpatient (CLI) ==
--- NOTE | 2019-04-29 15:56 | CT ---
Exam: CT of the chest without intravenous contrast. Comparison: 01/07/2019. Reason for exam: Malignant neoplasm of the lung. FINDINGS: There is a spiculated soft tissue lesion in the right hilar region with air bronchograms t hat is increased in size when compared to the previous study now measuring approximately 4.3 cm. Fluid is seen in the right upper lobe. Ground-glass opacities are seen in the right lower lobe witho ut pleural effusion or pneumothorax. The aorta is normal in course and caliber. Atherosclerotic disease is seen within the aorta and dist al arterial vasculature. Left Port-A-Cath is seen with the tip in the superior vena cava. No suspicious appearing osteoblasti c or osteolytic lesions. Impression: 1. Spiculated lesion in the right hilar region measuring up to 4.3 cm with air bronchograms. Findin gs can be seen with as neoplasia, infection, and inflammation. Findings are limited by the lack of i ntravenous contrast administration. Further evaluation is recommended. 2. Ground-glass opacities seen throughout the right lung parenchyma in the seen with inflammation, e romi infection, or early metastatic disease. Further evaluation is recommended. 3. Fluid in the right upper lobe. Findings can be seen with partial lobar collapse, and effusion. If clinical concern exists, bronchoscopy could be performed for further characterization.
== END 2019-04-29 12:47 | disposition home or self-care (01) ==
LOC: RAD 12:46
PROVIDERS: ATTEND Family Medicine
DX: C34.90 Malignant neoplasm of unspecified part of unspecified bronchus or lung (principal)

== ENCOUNTER 2019-05-16 16:36 | Outpatient (CLI) | END 2019-05-16 17:07 | disposition short-term general hospital (02) | LOC: AMBL 16:36 | PROVIDERS: ATTEND Internal Medicine | DX: T42.4X2A Poisoning by benzodiazepines, intentional self-harm, initial encounter (principal); R52 Pain, unspecified; C80.1 Malignant (primary) neoplasm, unspecified; R53.1 Weakness ==